=== PATIENT | female | born 1945 | race Caucasian/White ===

== ENCOUNTER → 2016-07-27 | Outpatient (CLI) | payer MEDICARE ==
[~2016-07-27] MED LIST: CALC-72 PO; CELE50CA PO; CHOL400T38 PO; DIAZ2TAB PO; GABA100C PO; HYDR-3307 PO; LACT1CAP35 PO; OXYC-223 PO; PRED10TA PO; PRED5TAB PO; TEMA7.5C PO; TRAZ50TA18 PO
== END | disposition home or self-care (01) ==
LOC: WOUND 10:14
PROVIDERS: ATTEND Internal Medicine
DX: I89.0 Lymphedema, not elsewhere classified (principal); Q85.00 Neurofibromatosis, unspecified; M81.0 Age-related osteoporosis without current pathological fracture; M06.9 Rheumatoid arthritis, unspecified; Z85.42 Personal history of malignant neoplasm of other parts of uterus; Z90.710 Acquired absence of both cervix and uterus; Z87.891 Personal history of nicotine dependence
CPT/HCPCS: G0463; WOU0463

== ENCOUNTER → 2017-04-05 | Outpatient (CLI) | payer MEDICARE ==
[~2017-04-05] MED LIST changes: +CALC-534 PO; -CALC-72 PO; +CELE200C PO; -CHOL400T38 PO; +CHOL400T55 PO; +OMEP-110 PO; -OXYC-223 PO; +OXYC-306 PO
== END | disposition home or self-care (01) ==
LOC: STAR 11:10
PROVIDERS: ATTEND Urology
DX: N39.3 Stress incontinence (female) (male) (principal)
CPT/HCPCS: 93005

== ENCOUNTER 2017-04-13 08:47 | Day surgery (SDC) | payer MEDICARE ==
[~2017-04-13] VITALS: Ht 152.4 cm; Wt 50.3 kg
[2017-04-13 09:21] VITALS: BP 170/89
[2017-04-13] MEDS ORDERED: LACTATED RINGERS 1,000 ML IV SCH (09:24)
[2017-04-13] MEDS ORDERED: LIDOCAINE 1%, 2ML SQ PRN (09:30)
[2017-04-13] MEDS ORDERED: NEOMY/POLYMYXIN B GU IRR. 1 ML IRRIG ONE (10:48)
[2017-04-13] MEDS ORDERED: FENTANYL PF 100 MCG/2ML ONE (11:40)
[2017-04-13] MEDS ORDERED: MIDAZOLAM 1 MG/ML, 2ML ONE (11:40)
[2017-04-13] MEDS ORDERED: EPINEPHRINE 1 MG/ML, 1ML ONE (12:11)
[2017-04-13] MEDS ORDERED: PROPOFOL 10 MG/ML, 20ML ONE (12:27)
[2017-04-13] MEDS ORDERED: DEXAMETHASONE 4 MG/ML, 1ML ONE (12:27)
[2017-04-13] MEDS ORDERED: CEFAZOLIN 1,000 MG ONE (12:27)
[2017-04-13] MEDS ORDERED: ONDANSETRON 2MG/ML, 2ML ONE (12:27)
[2017-04-13] MEDS ORDERED: BUPIVACAINE/PF 0.25% INFIL ONE (12:57)
[2017-04-13] MEDS ORDERED: PROMETHAZINE 25 MG/ML, 1ML IV PRN (13:30)
[2017-04-13] MEDS ORDERED: ACETAMINOPHEN 325 MG TABLET PO PRN (13:30)
[2017-04-13] MEDS ORDERED: EPHEDRINE 50 MG/ML, 1ML IVPush PRN (13:30)
[2017-04-13] MEDS ORDERED: OXYcodone 5 MG/5 ML ORAL.SOL UDC PO PRN (13:30)
[2017-04-13] MEDS ORDERED: MEPERIDINE/PF 25MG/0.5ML IVPush PRN (13:30)
[2017-04-13] MEDS ORDERED: MIDAZOLAM 1 MG/ML, 2ML IV PRN (13:30)
[2017-04-13] MEDS ORDERED: LABETALOL 5MG/ML, 20ML IV PRN (13:30)
[2017-04-13] MEDS ORDERED: METOPROLOL 1 MG/ML, 5ML IV PRN (13:30)
[2017-04-13] MEDS ORDERED: HYDROcodone/APAP 7.5-325MG/15ML UDC PO PRN (13:30)
[2017-04-13] MEDS ORDERED: OXYcodone/APAP 5/325MG TABLET PO PRN (13:30)
[2017-04-13] MEDS ORDERED: ALBUTEROL SULFATE 2.5 MG/3 ML NPPB PRN (13:30)
[2017-04-13] MEDS ORDERED: HYDROmorphone 1 MG/ML, 1ML IV PRN (13:30)
[2017-04-13] MEDS ORDERED: hydrALAzine 20 MG/ML, 1ML IV PRN (13:30)
[2017-04-13] MEDS ORDERED: ONDANSETRON 2MG/ML, 2ML IVPush PRN (13:30)
[2017-04-13] MEDS ORDERED: FENTANYL PF 100 MCG/2ML IV PRN (13:30)
[2017-04-13] MEDS ORDERED: DIAZEPAM 5 MG/ML, 2ML IVPush PRN (13:30)
[2017-04-13] MEDS ORDERED: ACETAMINOPHEN 650 MG/20.3 ML UDC ONE (13:50)
== END 2017-04-13 15:25 ==
LOC: OUT 08:47
PROVIDERS: ATTEND Urology
DX: N39.3 Stress incontinence (female) (male) (principal); K21.9 Gastro-esophageal reflux disease without esophagitis
CPT/HCPCS: 57288; C1771; J0171; J0690; J1100; J2250; J2405; J2704; J3010; J3490; J7120

== ENCOUNTER → 2017-08-18 | Outpatient (CLI) | payer MEDICARE | END | disposition home or self-care (01) | LOC: LAB 11:57 | PROVIDERS: ATTEND Specialist | DX: M06.9 Rheumatoid arthritis, unspecified (principal); Z92.25 Personal history of immunosuppression therapy | CPT/HCPCS: 36415; 86480 ==

== ENCOUNTER → 2018-04-20 | Outpatient (CLI) | payer MEDICARE ==
[~2018-04-20] MED LIST changes: +REGADENOSON 0.4 MG/5 ML SYRINGE ONE; -TRAZ50TA18 PO; +TRAZ50TA66 PO
== END | disposition home or self-care (01) ==
LOC: CFH 11:04
PROVIDERS: ATTEND Internal Medicine Cardiovascular Disease
DX: I08.0 Rheumatic disorders of both mitral and aortic valves (principal); I11.0 Hypertensive heart disease with heart failure
CPT/HCPCS: 78452; 93017; 93306; A9502; J2785

== ENCOUNTER → 2018-05-18 | Outpatient (CLI) | payer MEDICARE ==
[~2018-05-18] MED LIST changes: +ASPI-496 PO; +ASPI81TA45 PO; +ATOR40TA78 PO; +FLUT9.9S NAS; +LISI-170 PO; +METO25TA91 PO; +MONT10TA9 PO; -REGADENOSON 0.4 MG/5 ML SYRINGE ONE; +TICA90TA PO
[2018-05-18 10:51] LABS: CHLORIDE 102 mmol/L (98-107)
[2018-05-18 11:00] LABS: ALANINE AMINOTRANSFERASE 12 U/L (12-78); ALBUMIN 3.6 g/dL (3.4-5.0); ALKALINE PHOSPHATASE 49 U/L (45-117); ANION GAP 5 mmol/L (5-15); BILIRUBIN,TOTAL 0.7 mg/dL (0.2-1.0); CHOL/HDL RATIO 2.3; CHOLESTEROL, TOTAL 182 mg/dL (140-239); CREATININE 0.98 mg/dL (0.55-1.02); HDL CHOL % 44 % (28-40); HDL CHOLESTEROL (DIRECT) 80 mg/dL (40-60); LDL CHOLESTEROL,CALCULATED 89 mg/dL (54-169); LDL/HDL RATIO 1.1 (0.5-3.0); TOTAL PROTEIN 6.7 g/dL (6.4-8.2); TRIGLYCERIDES 66 mg/dL (50-200); VLDL CHOLESTEROL 13 mg/dL (0-25)
== END | disposition home or self-care (01) ==
LOC: STAR 09:39
PROVIDERS: ATTEND Internal Medicine Cardiovascular Disease
DX: Z01.818 Encounter for other preprocedural examination (principal); R07.89 Other chest pain; R94.30 Abnormal result of cardiovascular function study, unspecified; R06.02 Shortness of breath; I10 Essential (primary) hypertension
CPT/HCPCS: 36415; 80053; 80061; 83880

== ENCOUNTER 2018-05-22 09:15 | Observation (INO) | payer MEDICARE ==
[2018-05-18 12:47] VITALS: BP 150/80
[~2018-05-22] VITALS: Ht 149.9 cm; Wt 49.9 kg
[~2018-05-22 09:15] MED LIST changes: -ASPI81TA45 PO; -ATOR40TA78 PO; -TICA90TA PO
[2018-05-22] MEDS: SODIUM CHLORIDE 0.9% 1,000 ML IV SCH ×4 (09:51→20:13)
[2018-05-22] MEDS ORDERED: ASPIRIN 325 MG TABLET EC PO ONE (10:00)
[2018-05-22] MEDS ORDERED: FENTANYL PF 100 MCG/2ML ONE (10:28)
[2018-05-22] MEDS ORDERED: NITROGLYCERIN 5 MG/ML, 10ML ONE (10:28)
[2018-05-22] MEDS ORDERED: MIDAZOLAM 1 MG/ML, 2ML ONE ×2 (10:28→11:40)
[2018-05-22] MEDS ORDERED: LIDOCAINE 1%, 20ML ONE (10:29)
[2018-05-22] MEDS ORDERED: TICAGRELOR 90 MG TABLET ONE (11:30)
[2018-05-22] MEDS ORDERED: BIVALIRUDIN 250 MG ONE (11:30)
[2018-05-22] MEDS: LISINOPRIL 20 MG TABLET PO SCH (12:30)
[2018-05-22] MEDS ORDERED: TRAZODONE 50MG TABLET PO SCH (12:30)
[2018-05-22] MEDS: METOPROLOL SUCCINATE 25 MG TAB.ER.24H PO SCH (12:30)
[2018-05-22] MEDS: MONTELUKAST 10 MG TABLET PO SCH (12:30)
[2018-05-22] MEDS: [UNRECOGNIZED DRUG - REMARK] NAS SCH (12:30)
[2018-05-22] MEDS: ASPIRIN 81 MG TABLET EC PO SCH (12:30)
[2018-05-22 16:50] VITALS: BP 145/83
[2018-05-22 20:00] VITALS: BP 123/76
[2018-05-22] MEDS ORDERED: ATORVASTATIN 40 MG TABLET PO SCH (21:00)
[2018-05-22] MEDS: TICAGRELOR 90 MG TABLET PO SCH (22:47)
[2018-05-22] MEDS: OMEPRAZOLE 20 MG CAPSULE.DR PO SCH (22:47)
[2018-05-23 01:56] VITALS: BP 149/78
[2018-05-23] MEDS: SODIUM CHLORIDE 0.9% 1,000 ML IV SCH (03:32)
[2018-05-23 04:39] LABS: ANION GAP 7 mmol/L (5-15); CALCIUM 7.4 mg/dL (8.5-10.1); CHLORIDE 108 mmol/L (98-107); CREATININE 0.82 mg/dL (0.55-1.02)
[2018-05-23 07:33] VITALS: BP 140/83
[2018-05-23] MEDS ORDERED: ASPI81TA45 PO (08:33)
[2018-05-23] MEDS ORDERED: ATOR40TA78 PO (08:33)
[2018-05-23] MEDS ORDERED: TICA90TA PO (08:33)
[2018-05-23] MEDS: [UNRECOGNIZED DRUG - REMARK] NAS SCH (09:00)
[2018-05-23] MEDS: ASPIRIN 81 MG TABLET EC PO SCH (09:14)
[2018-05-23] MEDS: OMEPRAZOLE 20 MG CAPSULE.DR PO SCH (09:14)
[2018-05-23] MEDS: TICAGRELOR 90 MG TABLET PO SCH (09:15)
[2018-05-23] MEDS: METOPROLOL SUCCINATE 25 MG TAB.ER.24H PO SCH (09:15)
[2018-05-23] MEDS: LISINOPRIL 20 MG TABLET PO SCH (09:15)
[2018-05-23] MEDS: MONTELUKAST 10 MG TABLET PO SCH (09:15)
[2018-05-23 10:46] LABS: MICROSCOPIC NOT IND
[2018-05-23 10:50] LABS: CULTURE INDICATED? NO
== END 2018-05-23 12:15 | disposition home or self-care (01) ==
LOC: CACL 09:15 → ORIP 12:13 → 5SO 16:34 → DCLOUNGE 05-23 12:03
PROVIDERS: ADMIT Internal Medicine Cardiovascular Disease; ATTEND Internal Medicine Cardiovascular Disease
DX: I25.10 Atherosclerotic heart disease of native coronary artery without angina pectoris (principal); I25.82 Chronic total occlusion of coronary artery; I11.0 Hypertensive heart disease with heart failure; I50.32 Chronic diastolic (congestive) heart failure; I35.1 Nonrheumatic aortic (valve) insufficiency; R94.30 Abnormal result of cardiovascular function study, unspecified; Z79.82 Long term (current) use of aspirin; Z79.899 Other long term (current) drug therapy
CPT/HCPCS: 36415; 80048; 81003; 85014; 85018; 93458; 99156; 99157; C1725; C1760; C1769; C1874; C1887; C1894; C9600; G0378; J0583; J2250; J3010; J3490; J7030; Q9967

== ENCOUNTER → 2019-04-08 | Outpatient (CLI) | payer MEDICARE ==
[~2019-04-08] MED LIST changes: +ASPI81TA45 PO; +ATOR40TA78 PO; -HYDR-3307 PO; +HYDR-36 PO; +TICA90TA PO
== END | disposition home or self-care (01) ==
LOC: CFH 11:10
PROVIDERS: ATTEND Internal Medicine
DX: Z12.31 Encounter for screening mammogram for malignant neoplasm of breast (principal)
CPT/HCPCS: 77063; 77067

== ENCOUNTER → 2019-07-04 | Outpatient (CLI) | payer MEDICARE ==
[~2019-07-04] MED LIST changes: +MONT10TA11 PO; -MONT10TA9 PO
== END | disposition home or self-care (01) ==
LOC: CFH 08:23
PROVIDERS: ATTEND Internal Medicine Cardiovascular Disease
DX: I08.3 Combined rheumatic disorders of mitral, aortic and tricuspid valves (principal); I25.10 Atherosclerotic heart disease of native coronary artery without angina pectoris
CPT/HCPCS: 93306

== ENCOUNTER → 2020-09-24 | Outpatient (CLI) | payer MEDICARE ==
[~2020-09-24] MED LIST changes: +HYDR-3248 PO; -HYDR-36 PO; -MONT10TA11 PO; +MONT10TA17 PO; -OXYC-306 PO; +OXYC1TAB17 PO
== END | disposition home or self-care (01) ==
LOC: CFH 10:37
PROVIDERS: ATTEND Internal Medicine
DX: M81.0 Age-related osteoporosis without current pathological fracture (principal)
CPT/HCPCS: 77080

== ENCOUNTER 2020-12-01 10:30 | Outpatient (CLI) | payer MEDICARE ==
[~2020-12-01 10:30] MED LIST changes: +OXYC1TAB16 PO; -OXYC1TAB17 PO; +REGADENOSON 0.4 MG/5 ML SYRINGE ONE
== END 2020-12-01 23:59 | disposition home or self-care (01) ==
LOC: CVU 10:30 → CFH 23:59
PROVIDERS: ATTEND Internal Medicine Cardiovascular Disease
DX: I08.3 Combined rheumatic disorders of mitral, aortic and tricuspid valves (principal); I11.0 Hypertensive heart disease with heart failure; I25.10 Atherosclerotic heart disease of native coronary artery without angina pectoris; I50.32 Chronic diastolic (congestive) heart failure
CPT/HCPCS: 78452; 93017; 93306; 93356; A9502; J2785